=== PATIENT | male | born 1955 | race Caucasian/White ===

== ENCOUNTER 2017-04-06 22:31 | Emergency (ER) | payer OTHER ==
--- NOTE | 2017-04-06 23:57 | ED NURSING NOTES ---
Clinical Report - Nurses [facility] [address] [place] [address] 04/06/2017 22:32 Patient: JAYMIE BARTLETT TRIAGE Triage time 22:35. Acuity: LEVEL 3. Chief Complaint: LIGHT HEADED. --22:39 Kenia Worthington R.N. 22:35 04/06/17. BP: 135/94. HR: 192. RR: 20. O2 saturation: 96%. Temp: 97.8 F. Pain level now: 0/10. --22:39 Kenia Worthington R.N. 22:35. --22:57 Melvin Asencio Weight: 81.6 kg. Height/Length: 68 inches. BMI: 27.4. --22:36 Kenia Worthington R.N. Medications Lipitor Oral 10 mg, daily. --22:36 Kenia Worthington R.N. Allergies No Known Drug Allergy. --22:36 Kenia Worthington R.N. History Arrived by private vehicle. Historian: patient. Accompanied by family. This started just prior to arrival. 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 PAST MEDICAL HX: Immunizations: up-to-date. SOCIAL HX: Never smoker. Alcohol use; consumes beer occasionally. No drug use. No infectious disease exposure. SELF HARM ASSESSMENT: A self harm assessment was performed. The patient answered "no" to the question "Have you recently felt down, depressed, or hopeless?", "Have you noticed less interest or pleasure in doing things?", "Do you have thoughts of harming or killing yourself?", "Are you here because you tried to hurt yourself?", "Have you ever tried to hurt yourself before today?", "Have you recently had thoughts about harming or killing others?" and "Do you have any dangerous items in your possession?". FALL RISK ASSESSMENT: Fall risk assessment completed. No fall risk identified. NUTRITIONAL RISK ASSESSMENT: The nutritional risk assessment revealed no deficiencies. FUNCTIONAL ASSESSMENT: Functional assessment: no impairments noted. LEARNING NEEDS ASSESSMENT: The learning needs assessment revealed no barriers. ABUSE ASSESSMENT: Abuse assessment: The patient was asked "Do you feel safe in your home?". SKIN INTEGRITY ASSESSMENT: Skin integrity risk assessment completed. No skin integrity risk identified. --22:39 Kenia Worthington R.N. ( pt arrived with RHR, pt is in SVT on monitor). --22:57 Melvin Asencio PROBLEMS: Changed Mental Status. Alcohol Intoxication. Hypercholesterolemia. --22:36 Kenia Worthington R.N. ADDITIONAL SURGERIES: no known surgeries. Interventions ID band on patient. To treatment room. --22:39 Kenia Worthington R.N. PHYSICAL ASSESSMENT To room via wheelchair. GENERAL / NEURO / PSYCH: Oriented X 4. Appears in no acute distress. Alert. Speech within normal limits. HEENT: No facial asymmetry noted. Pupils equal, round and reactive to light. RESPIRATORY: Breath sounds within normal limits. Respirations not labored. CVS: Normal sinus rhythm noted. Capillary refill less than 2 seconds. GI / : Abdomen soft and nontender. SKIN: Skin is warm and dry. --22:40 Kenia Worthington R.N. NURSING PROGRESS NOTES 22:40 04/06/2017 Site #1 started via IV in the left wrist with an 20g angiocath, with aseptic technique and good blood return; one attempt. Blood drawn: rainbow set. Labeled in the presence of the patient and sent to the lab. Saline lock flushed with saline. --22:40 Kenia Worthington R.N. Oxygen administered by nasal cannula at 2 liters. enterprise systems engineer, pulse oximeter and NIBP monitor placed on patient. Patient gowned. Call light placed in reach. Side rails up x 1. Bed placed in lowest position. Brakes of bed on. --22:40 Kenia Worthington R.N. ( adenosine 6mg given per md, pt now back to HR of 108 at this time). --22:46 Kenia Worthington R.N. ( repeat EKG complete). --22:46 Kenia Worthington R.N. Reassessment after medication administered. He is calm. Overall patient status is improved. --22:46 Kenia Worthington R.N. ( NS bolus started). --22:46 Kenia Worthington R.N. ( pt was placed on ZOLL monitor prior to administration). --22:47 Kenia Worthington R.N. 22:33 04/06/2017 Site #2 started via IV in the right antecubital space with an 18g angiocath; one attempt. Saline lock flushed with saline. --22:48 Melvin Asencio ( pt sitting up in bed laughing and joking at this time, pt in SR at this time). --22:53 Melvin Asencio DISPOSITION / DISCHARGE 00:07 04/07/2017 Site #2 removed upon discharge. Catheter intact. Pressure dressing applied. --00:07 Melvin Asencio 00:04/07/2017 Site #1 removed upon discharge. Catheter intact. Pressure dressing applied. --00:07 Melvin Asencio Departure time: 00:08. Condition at departure: improved. No learning barriers present. Discharge instructions provided and reviewed with the patient. Patient verbalized understanding. Written instructions provided in Pashto. No warning instructions, medication instructions, treatment instructions, referrals given to the patient or diet instructions. No activity restrictions, note given, follow up contact number given or stop smoking instructions. The patient was discharged by the physician. He was discharged home and accompanied by spouse. He left the Emergency Department ambulatory and via private vehicle. Spouse driving. FALL RISK ASSESSMENT: Fall risk assessment completed. No fall risk identified. --00:08 Melvin Asencio 00:07 04/07/17. BP: 123/88. HR: 91. RR: 16. O2 saturation: 99%. Temp: deferred. Pain level now: 0/10. --00:08 Melvin Asencio Locked/Released at 04/07/2017 0:08 by Melvin Asencio
--- NOTE | 2017-04-06 23:57 | ED ORDER SUMMARY ---
..... Patient: JAYMIE BARTLETT OrderSheet [facility] VisitID: [id number] [address] [place] [address] 61y, M Registration Date/Time: 04/06/2017 ORDER SHEET Weight: 81.6 kg Allergies: No Known Drug Allergy GENERAL ORDERS: Leadlighter (Continuous) (22:50 04/06/2017 Aria GOODEN) (22:51 TBowen R.N.) Chest 1V Urgent (22:51 04/06/2017 Aria GOODEN) (Ack 22:52 AMcQuoid ER Tech1) (23:01 AMcQuoid ER Tech1) Cardiac Panel Stat (22:51 04/06/2017 Aria GOODEN) (22:51 TBowen R.N.) Oxygen (2 L/min) (NC) (22:51 04/06/2017 Aria GOODEN) (22:51 TBowen R.N.) Pulse oximeter (22:51 04/06/2017 Aria GOODEN) (22:51 TBowen R.N.) EKG - ER Stat (22:51 04/06/2017 Aria GOODEN) (22:51 TBowen R.N.) MEDICATION ORDERS: IV FLUIDS: IV Saline Lock (22:51 04/06/2017 Aria GOODEN) (22:51 TBowen R.N.) ORDER SHEET NOTES: [Electronically signed by Alina Otto R.N. (00:08 04/07/2017)] [Electronically signed by Trevon Parrish MD (21:57 04/09/2017)] [Electronically locked/signed by Alina Otto R.N. (00:08 04/07/2017)]
--- NOTE | 2017-04-06 23:57 | ED CLINICAL REPORT ---
Clinical Report - Physicians/Mid Levels [facility] [address] [place] [place] [address] 04/06/2017 22:32 Patient: JAYMIE BARTLETT Time Seen: 22:39 Apr 06 2017. Arrived- By private vehicle. Historian- patient. CPT: ER phys charges level 4 plus (#116544). EKG interpretation (#[id number]) (times 2 exams.). HISTORY OF PRESENT ILLNESS Chief Complaint: PALPITATIONS. DIZZINESS. Modifying factors. Not worsened by anything. Not relieved by anything. This started today Working out in the sun shoveling when this came on. and is still present. Onset during exertion. It is described as a fast heart beat. He complains of dizziness. No chest pain or discomfort, difficulty breathing, sweating episodes or fainting episodes. No tingling or muscle spasms. He has had dizziness. 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 Similar symptoms previously: (about every 2 years but has not seen anyone for it.). ( Did get an ETT due to reported palpitations and it was normal.). Recent medical care: Not recently seen/assessed. REVIEW OF SYSTEMS No fever, chills, cough, orthopnea or calf pain. No sore throat, nausea, abdominal pain, black stools or difficulty with urination. No skin rash, vomiting, diarrhea or bloody stools. All systems otherwise negative, except as recorded above. PAST HISTORY Changed Mental Status. Alcohol Intoxication. Hypercholesterolemia. Additional Surgeries: no known surgeries. Medications: Lipitor Oral 10 mg, daily. Allergies: No Known Drug Allergy. SOCIAL HISTORY Never smoker. Occasional alcohol use. No drug use. ADDITIONAL NOTES The nursing notes have been reviewed. PHYSICAL EXAM Vital Signs: 04/06/2017 22:35 BP: 135/94. HR: 192. RR: 20. O2 saturation: 96%. Temp: 97.8 F. Pain level now: 0/10. Appearance: Alert. No acute distress. Eyes: Pupils equal, round and reactive to light. Eyes normal inspection. ENT: Ears normal. Nose normal. Dry mucous membranes present. Pharynx normal. Neck: Normal inspection. Neck supple. CVS: Tachycardia. Heart sounds normal. Pulses normal. Respiratory: No respiratory distress. Breath sounds normal. Chest nontender. Abdomen: Soft and nontender. Back: Normal external inspection. Skin: Skin warm. Normal skin color. No rash. Extremities: Extremities exhibit normal ROM. No lower extremity edema. Neuro: Oriented X 3. No motor deficit. No sensory deficit. LABS, X-RAYS, AND EKG EKG: Rate: 190. Tachycardia. Normal QRS complex. Non-specific ST segment / T wave abnormalities. Prior EKG unavailable. The study has been interpreted contemporaneously. The study has been independently viewed by me. The EKG appears to be a good tracing. EKG #2: Normal sinus rhythm. Rate: 109. Tachycardia. Left atrial enlargement. Non-specific ST segment / T wave abnormalities. Moderate T wave inversion in lead III and V1. Prior EKG unavailable. The study has been interpreted contemporaneously. The study has been independently viewed by me. The EKG appears to be a good tracing. Chest X-ray: Normal Chest X-Ray. Laboratory Tests: CBC w Diff: (SEAMUS: 04/06/2017 22:40) ( [facility] [place]06[place] 23:00) Final results Test Result Flag Units (Reference) WHITE BLOOD COUNT 15.3 H K/uL (4.5-11.5) RED BLOOD COUNT 5.27 M/uL (4.50-5.90) HEMOGLOBIN 16.9 gm/dL (13.5-17.5) HEMATOCRIT 50.0 % (41.0-53.0) MEAN CELL VOLUME 95 fL (80-100) MEAN CORPUSCULAR HGB 32 pg (26-34) MEAN CORPUSCULAR HGB CONC 34 g/dL (31-37) RED CELL DISTRIBUTION WIDTH 12.2 % (11.6-14.8) PLATELET COUNT 278 K/uL (150-400) LYMPH % 33.4 % (25-40) MONO % 2.9 L % (3-14) GRANULOCYTE % 63.7 CHEM 13 PANEL: (SEAMUS: 04/06/2017 22:40) ( IngRcvd 04/06/2017 23:31) Final results Test Result Flag Units (Reference) GLUCOSE 116 H mg/dL (70-110) BUN 21 H mg/dL (7-18) CREATININE 1.3 mg/dL (0.6-1.3) Estimated GFR 59.65 mL/min Estimated GFR- >60 mL/min Note: Persistent reduction over 3 months in eGFR<60 mL/min/1.73 m2 defines CKD. Patients with eGFR values>=60 mL/min/1.73 m2 may also have CKD if evidence ofpersistent proteinuria. Additional information may be foundat www.kidney.org. SODIUM 142 mmol/L (136-145) POTASSIUM 4.1 mmol/L (3.5-5.1) CHLORIDE 106 mmol/L (98-107) CARBON DIOXIDE 26 mmol/L (21-32) CALCIUM 9.2 mg/dL (8.5-10.1) TOTAL PROTEIN 7.9 g/dL (6.4-8.2) ALBUMIN 4.2 g/dL (3.3-5.0) BILIRUBIN, TOTAL 0.4 mg/dL (0.0-1.0) ALKALINE PHOSPHATASE 63 U/L (46-116) AST (SGOT) 33 U/L (15-37) ALT (SGPT) 47 U/L (12-78) CPK 266 H U/L (24-260) MAGNESIUM 2.2 mg/dL (1.8-2.4) CK-MB 5.2 H ng/mL (0.5-3.2) %CKMB 2.0 % (0.0-4.0) TROPONIN I 0.07 ng/mL (0.00-1.5) TROPONIN REFERENCE RANGE:<0.1 NEGATIVE0.1-1.5 INDETERMINANT>1.5 POSITIVE . PROGRESS AND PROCEDURES Course of Care: Adensine 6mg IV and patient converted to NSR. Patient/family counseled. Disposition: Discharged. Condition: stable and improved. CLINICAL IMPRESSION Paroxysmal supraventricular tachycardia (recurrent). Dehydration. INSTRUCTIONS No strenuous activity for one days until better. Drink plenty of fluids. (Would recommend an echocardiogram as the EKG suggested left atrial enlargement.). Warnings: Further evaluation is necessary. GENERAL WARNINGS: Return or contact your physician immediately if your condition worsens or changes unexpectedly, if not improving as expected, or if other problems arise. Your Current Medications: CONTINUE TAKING THE FOLLOWING MEDICATIONS: Lipitor Oral : 10 mg daily. Follow-up: Follow up with your doctor in one week. Call for an appointment. Understanding of the discharge instructions verbalized by patient. Discharge instructions reviewed with and understanding was verbalized by spouse. (Electronically signed by Trevon Parrish MD 04/09/2017 21:57)
--- NOTE | 2017-04-06 23:57 | ED NURSING NOTES ---
Clinical Report - Nurses [facility] [address] [place] [address] 04/06/2017 22:32 Patient: JAYMIE BARTLETT TRIAGE Triage time 22:35. Acuity: LEVEL 3. Chief Complaint: LIGHT HEADED. --22:39 Kenia Worthington R.N. 22:35 04/06/17. BP: 135/94. HR: 192. RR: 20. O2 saturation: 96%. Temp: 97.8 F. Pain level now: 0/10. --22:39 Kenia Worthington R.N. 22:35. --22:57 Melvin Asencio Weight: 81.6 kg. Height/Length: 68 inches. BMI: 27.4. --22:36 Kenia Worthington R.N. Medications Lipitor Oral 10 mg, daily. --22:36 Kenia Worthington R.N. Allergies No Known Drug Allergy. --22:36 Kenia Worthington R.N. History Arrived by private vehicle. Historian: patient. Accompanied by family. This started just prior to arrival. 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 PAST MEDICAL HX: Immunizations: up-to-date. SOCIAL HX: Never smoker. Alcohol use; consumes beer occasionally. No drug use. No infectious disease exposure. SELF HARM ASSESSMENT: A self harm assessment was performed. The patient answered "no" to the question "Have you recently felt down, depressed, or hopeless?", "Have you noticed less interest or pleasure in doing things?", "Do you have thoughts of harming or killing yourself?", "Are you here because you tried to hurt yourself?", "Have you ever tried to hurt yourself before today?", "Have you recently had thoughts about harming or killing others?" and "Do you have any dangerous items in your possession?". FALL RISK ASSESSMENT: Fall risk assessment completed. No fall risk identified. NUTRITIONAL RISK ASSESSMENT: The nutritional risk assessment revealed no deficiencies. FUNCTIONAL ASSESSMENT: Functional assessment: no impairments noted. LEARNING NEEDS ASSESSMENT: The learning needs assessment revealed no barriers. ABUSE ASSESSMENT: Abuse assessment: The patient was asked "Do you feel safe in your home?". SKIN INTEGRITY ASSESSMENT: Skin integrity risk assessment completed. No skin integrity risk identified. --22:39 Kenia Worthington R.N. ( pt arrived with RHR, pt is in SVT on monitor). --22:57 Melvin Asencio PROBLEMS: Changed Mental Status. Alcohol Intoxication. Hypercholesterolemia. --22:36 Kenia Worthington R.N. ADDITIONAL SURGERIES: no known surgeries. Interventions ID band on patient. To treatment room. --22:39 Kenia Worthington R.N. PHYSICAL ASSESSMENT To room via wheelchair. GENERAL / NEURO / PSYCH: Oriented X 4. Appears in no acute distress. Alert. Speech within normal limits. HEENT: No facial asymmetry noted. Pupils equal, round and reactive to light. RESPIRATORY: Breath sounds within normal limits. Respirations not labored. CVS: Normal sinus rhythm noted. Capillary refill less than 2 seconds. GI / : Abdomen soft and nontender. SKIN: Skin is warm and dry. --22:40 Kenia Worthington R.N. NURSING PROGRESS NOTES 22:40 04/06/2017 Site #1 started via IV in the left wrist with an 20g angiocath, with aseptic technique and good blood return; one attempt. Blood drawn: rainbow set. Labeled in the presence of the patient and sent to the lab. Saline lock flushed with saline. --22:40 Kenia Worthington R.N. Oxygen administered by nasal cannula at 2 liters. lunchroom monitor, pulse oximeter and NIBP monitor placed on patient. Patient gowned. Call light placed in reach. Side rails up x 1. Bed placed in lowest position. Brakes of bed on. --22:40 Kenia Worthington R.N. ( adenosine 6mg given per md, pt now back to HR of 108 at this time). --22:46 Kenia Worthington R.N. ( repeat EKG complete). --22:46 Kenia Worthington R.N. Reassessment after medication administered. He is calm. Overall patient status is improved. --22:46 Kenia Worthington R.N. ( NS bolus started). --22:46 Kenia Worthington R.N. ( pt was placed on ZOLL monitor prior to administration). --22:47 Kenia Worthington R.N. 22:33 04/06/2017 Site #2 started via IV in the right antecubital space with an 18g angiocath; one attempt. Saline lock flushed with saline. --22:48 Melvin Asencio ( pt sitting up in bed laughing and joking at this time, pt in SR at this time). --22:53 Melvin Asencio DISPOSITION / DISCHARGE 00:07 04/07/2017 Site #2 removed upon discharge. Catheter intact. Pressure dressing applied. --00:07 Melvin Asencio 00:04/07/2017 Site #1 removed upon discharge. Catheter intact. Pressure dressing applied. --00:07 Melvin Asencio Departure time: 00:08. Condition at departure: improved. No learning barriers present. Discharge instructions provided and reviewed with the patient. Patient verbalized understanding. Written instructions provided in Chinese. No warning instructions, medication instructions, treatment instructions, referrals given to the patient or diet instructions. No activity restrictions, note given, follow up contact number given or stop smoking instructions. The patient was discharged by the physician. He was discharged home and accompanied by spouse. He left the Emergency Department ambulatory and via private vehicle. Spouse driving. FALL RISK ASSESSMENT: Fall risk assessment completed. No fall risk identified. --00:08 Melvin Asencio 00:07 04/07/17. BP: 123/88. HR: 91. RR: 16. O2 saturation: 99%. Temp: deferred. Pain level now: 0/10. --00:08 Melvin Asencio Locked/Released at 04/07/2017 0:08 by Melvin Asencio
--- NOTE | 2017-04-06 23:57 | ED ORDER SUMMARY ---
..... Patient: JAYMIE BARTLETT OrderSheet [facility] VisitID: [id number] [address] [place] [address] 61y, M Registration Date/Time: 04/06/2017 ORDER SHEET Weight: 81.6 kg Allergies: No Known Drug Allergy GENERAL ORDERS: [employer] Insights (Continuous) (22:50 04/06/2017 Aria GOODEN) (22:51 TBowen R.N.) Chest 1V Urgent (22:51 04/06/2017 Aria GOODEN) (Ack 22:52 AMcQuoid ER Tech1) (23:01 AMcQuoid ER Tech1) Cardiac Panel Stat (22:51 04/06/2017 Aria GOODEN) (22:51 TBowen R.N.) Oxygen (2 L/min) (NC) (22:51 04/06/2017 Aria GOODEN) (22:51 TBowen R.N.) Pulse oximeter (22:51 04/06/2017 Aria GOODEN) (22:51 TBowen R.N.) EKG - ER Stat (22:51 04/06/2017 Aria GOODEN) (22:51 TBowen R.N.) MEDICATION ORDERS: IV FLUIDS: IV Saline Lock (22:51 04/06/2017 Aria GOODEN) (22:51 TBowen R.N.) ORDER SHEET NOTES: [Electronically signed by Alina Otto R.N. (00:08 04/07/2017)] [Electronically signed by Trevon Parrish MD (21:57 04/09/2017)] [Electronically locked/signed by Alina Otto R.N. (00:08 04/07/2017)]
--- NOTE | 2017-04-06 23:57 | ED CLINICAL REPORT ---
Clinical Report - Physicians/Mid Levels [facility] [address] [place] [address] 04/06/2017 22:32 Patient: JAYMIE BARTLETT Time Seen: 22:39 Apr 06 2017. Arrived- By private vehicle. Historian- patient. CPT: ER phys charges level 4 plus (#[id number]). EKG interpretation (#[id number]) (times 2 exams.). HISTORY OF PRESENT ILLNESS Chief Complaint: PALPITATIONS. DIZZINESS. Modifying factors. Not worsened by anything. Not relieved by anything. This started today Working out in the sun shoveling when this came on. and is still present. Onset during exertion. It is described as a fast heart beat. He complains of dizziness. No chest pain or discomfort, difficulty breathing, sweating episodes or fainting episodes. No tingling or muscle spasms. He has had dizziness. 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 Similar symptoms previously: (about every 2 years but has not seen anyone for it.). ( Did get an ETT due to reported palpitations and it was normal.). Recent medical care: Not recently seen/assessed. REVIEW OF SYSTEMS No fever, chills, cough, orthopnea or calf pain. No sore throat, nausea, abdominal pain, black stools or difficulty with urination. No skin rash, vomiting, diarrhea or bloody stools. All systems otherwise negative, except as recorded above. PAST HISTORY Changed Mental Status. Alcohol Intoxication. Hypercholesterolemia. Additional Surgeries: no known surgeries. Medications: Lipitor Oral 10 mg, daily. Allergies: No Known Drug Allergy. SOCIAL HISTORY Never smoker. Occasional alcohol use. No drug use. ADDITIONAL NOTES The nursing notes have been reviewed. PHYSICAL EXAM Vital Signs: 04/06/2017 22:35 BP: 135/94. HR: 192. RR: 20. O2 saturation: 96%. Temp: 97.8 F. Pain level now: 0/10. Appearance: Alert. No acute distress. Eyes: Pupils equal, round and reactive to light. Eyes normal inspection. ENT: Ears normal. Nose normal. Dry mucous membranes present. Pharynx normal. Neck: Normal inspection. Neck supple. CVS: Tachycardia. Heart sounds normal. Pulses normal. Respiratory: No respiratory distress. Breath sounds normal. Chest nontender. Abdomen: Soft and nontender. Back: Normal external inspection. Skin: Skin warm. Normal skin color. No rash. Extremities: Extremities exhibit normal ROM. No lower extremity edema. Neuro: Oriented X 3. No motor deficit. No sensory deficit. LABS, X-RAYS, AND EKG EKG: Rate: 190. Tachycardia. Normal QRS complex. Non-specific ST segment / T wave abnormalities. Prior EKG unavailable. The study has been interpreted contemporaneously. The study has been independently viewed by me. The EKG appears to be a good tracing. EKG #2: Normal sinus rhythm. Rate: 109. Tachycardia. Left atrial enlargement. Non-specific ST segment / T wave abnormalities. Moderate T wave inversion in lead III and V1. Prior EKG unavailable. The study has been interpreted contemporaneously. The study has been independently viewed by me. The EKG appears to be a good tracing. Chest X-ray: Normal Chest X-Ray. Laboratory Tests: CBC w Diff: (SEAMUS: 04/06/2017 22:40) ( [facility] [place]:00[place] Final results Test Result Flag Units (Reference) WHITE BLOOD COUNT 15.3 H K/uL (4.5-11.5) RED BLOOD COUNT 5.27 M/uL (4.50-5.90) HEMOGLOBIN 16.9 gm/dL (13.5-17.5) HEMATOCRIT 50.0 % (41.0-53.0) MEAN CELL VOLUME 95 fL (80-100) MEAN CORPUSCULAR HGB 32 pg (26-34) MEAN CORPUSCULAR HGB CONC 34 g/dL (31-37) RED CELL DISTRIBUTION WIDTH 12.2 % (11.6-14.8) PLATELET COUNT 278 K/uL (150-400) LYMPH % 33.4 % (25-40) MONO % 2.9 L % (3-14) GRANULOCYTE % 63.7 CHEM 13 PANEL: (SEAMUS: 04/06/2017 22:40) ( IlgRcvd 04/06/2017 23:31) Final results Test Result Flag Units (Reference) GLUCOSE 116 H mg/dL (70-110) BUN 21 H mg/dL (7-18) CREATININE 1.3 mg/dL (0.6-1.3) Estimated GFR 59.65 mL/min Estimated GFR- >60 mL/min Note: Persistent reduction over 3 months in eGFR<60 mL/min/1.73 m2 defines CKD. Patients with eGFR values>=60 mL/min/1.73 m2 may also have CKD if evidence ofpersistent proteinuria. Additional information may be foundat www.kidney.org. SODIUM 142 mmol/L (136-145) POTASSIUM 4.1 mmol/L (3.5-5.1) CHLORIDE 106 mmol/L (98-107) CARBON DIOXIDE 26 mmol/L (21-32) CALCIUM 9.2 mg/dL (8.5-10.1) TOTAL PROTEIN 7.9 g/dL (6.4-8.2) ALBUMIN 4.2 g/dL (3.3-5.0) BILIRUBIN, TOTAL 0.4 mg/dL (0.0-1.0) ALKALINE PHOSPHATASE 63 U/L (46-116) AST (SGOT) 33 U/L (15-37) ALT (SGPT) 47 U/L (12-78) CPK 266 H U/L (24-260) MAGNESIUM 2.2 mg/dL (1.8-2.4) CK-MB 5.2 H ng/mL (0.5-3.2) %CKMB 2.0 % (0.0-4.0) TROPONIN I 0.07 ng/mL (0.00-1.5) TROPONIN REFERENCE RANGE:<0.1 NEGATIVE0.1-1.5 INDETERMINANT>1.5 POSITIVE . PROGRESS AND PROCEDURES Course of Care: Adensine 6mg IV and patient converted to NSR. Patient/family counseled. Disposition: Discharged. Condition: stable and improved. CLINICAL IMPRESSION Paroxysmal supraventricular tachycardia (recurrent). Dehydration. INSTRUCTIONS No strenuous activity for one days until better. Drink plenty of fluids. (Would recommend an echocardiogram as the EKG suggested left atrial enlargement.). Warnings: Further evaluation is necessary. GENERAL WARNINGS: Return or contact your physician immediately if your condition worsens or changes unexpectedly, if not improving as expected, or if other problems arise. Your Current Medications: CONTINUE TAKING THE FOLLOWING MEDICATIONS: Lipitor Oral : 10 mg daily. Follow-up: Follow up with your doctor in one week. Call for an appointment. Understanding of the discharge instructions verbalized by patient. Discharge instructions reviewed with and understanding was verbalized by spouse. (Electronically signed by Trevon Parrish MD 04/09/2017 21:57)
--- NOTE | 2017-04-07 05:23 | DIAGNOSTIC IMAGING REPORT ---
PROCEDURE: XR CHEST 1 VIEW INDICATION: Supraventricular tachycardia. TECHNIQUE: Portable AP view (2300 hours). COMPARISON: None. FINDINGS: Allowing for overlying wires and external densities, lung are clear. Heart and mediastinum are normal. Thorax is normal. IMPRESSION: 1. Negative chest.
--- NOTE | 2017-04-09 21:57 | ED MAR SUMMARY ---
..... Medication Administration Record [facility] [address] [place], [place] [id number] Patient: JAYMIE BARTLETT Visit ID: [id number] 61y, M Weight: 81.6 kg Height/Length: 68 in BMI: 27.4 ALLERGIES: No Known Drug Allergy
--- NOTE | 2017-04-09 21:57 | ED DISCHARGE INSTRUCTIONS ---
Patient: JAYMIE BARTLETT General Instructions [facility] VisitID: [id number] [address] [place] [address] 61y, M Registration Date/Time: 04/06/2017 Paroxysmal supraventricular tachycardia (recurrent). Dehydration. INSTRUCTIONS No strenuous activity for one days until better. Drink plenty of fluids. (Would recommend an echocardiogram as the EKG suggested left atrial enlargement.). Warnings: Further evaluation is necessary. GENERAL WARNINGS: Return or contact your physician immediately if your condition worsens or changes unexpectedly, if not improving as expected, or if other problems arise. Your Current Medications: CONTINUE TAKING THE FOLLOWING MEDICATIONS: Lipitor Oral : 10 mg daily. Follow-up: Follow up with your doctor in one week. Call for an appointment. Understanding of the discharge instructions verbalized by patient. Discharge instructions reviewed with and understanding was verbalized by spouse. ADDITIONAL INFORMATION Tachycardia:P.A.T. (P.S.V.T.) P.A.T. stands for Paroxysmal Atrial Tachycardia (also called "P.S.V.T." or "Paroxysmal Supraventricular Tachycardia"). This means "sudden onset of fast heart beating." This may feel like your heart is racing or pounding. Because of the suddenness of onset, it is often scary but is usually not a dangerous condition. Episodes may last seconds, minutes or hours. This can occur in otherwise healthy persons who have used excessive amounts of stimulants such as tobacco or caffeine (coffee, tea, cola or medicines containing caffeine). Also certain ovdi-pec-pydzgmu cold & sinus remedies, as well as diet pills and some herbal supplements can over-stimulate the heart. Obviously, cocaine and amphetamine are the most powerful heart stimulants and must be avoided. Overactive thyroid and some types of heart valve disorders can also cause P.A.T. If your doctor suspects this, tests may be done to find out if this is the cause in your case. Home Care: 1) Rest today and resume your normal activities as soon as you are feeling back to normal. Sometimes a prolonged episode of P.A.T. can leave you feeling tired and weak for a while. 2) To prevent a recurrence, avoid ALL the stimulants mentioned above. If you have trouble eliminating coffee, switch to decaf. Smokers should make every effort to stop or at least switch to a filtered, low-nicotine type of cigarette while you look for a stop-smoking program. 3) If another episode of P.A.T. occurs, lie down and try to remain calm. These spells usually stop by themselves within a few minutes. Follow Up with your doctor within the week or as instructed by our staff. Get Prompt Medical Attention if any of the following occur: -- Chest, shoulder, arm, neck or back pain -- Shortness of breath -- Weakness -- Fainting or light-headedness -- Fast or pounding heartbeat that lasts over 20 minutes You have been given the following additional information: Pat (P.A.T.) No strenuous activity for one days until better. (Electronically signed by Trevon Parrish MD 04/09/2017 21:57)
--- NOTE | 2017-04-09 21:57 | ED DISCHARGE INSTRUCTIONS ---
Patient: JAYMIE BARTLETT General Instructions [facility] VisitID: [id number] [address] [place] [address] 61y, M Registration Date/Time: 04/06/2017 Paroxysmal supraventricular tachycardia (recurrent). Dehydration. INSTRUCTIONS No strenuous activity for one days until better. Drink plenty of fluids. (Would recommend an echocardiogram as the EKG suggested left atrial enlargement.). Warnings: Further evaluation is necessary. GENERAL WARNINGS: Return or contact your physician immediately if your condition worsens or changes unexpectedly, if not improving as expected, or if other problems arise. Your Current Medications: CONTINUE TAKING THE FOLLOWING MEDICATIONS: Lipitor Oral : 10 mg daily. Follow-up: Follow up with your doctor in one week. Call for an appointment. Understanding of the discharge instructions verbalized by patient. Discharge instructions reviewed with and understanding was verbalized by spouse. ADDITIONAL INFORMATION Tachycardia:P.A.T. (P.S.V.T.) P.A.T. stands for Paroxysmal Atrial Tachycardia (also called "P.S.V.T." or "Paroxysmal Supraventricular Tachycardia"). This means "sudden onset of fast heart beating." This may feel like your heart is racing or pounding. Because of the suddenness of onset, it is often scary but is usually not a dangerous condition. Episodes may last seconds, minutes or hours. This can occur in otherwise healthy persons who have used excessive amounts of stimulants such as tobacco or caffeine (coffee, tea, cola or medicines containing caffeine). Also certain dkhr-dih-sjtcqle cold & sinus remedies, as well as diet pills and some herbal supplements can over-stimulate the heart. Obviously, cocaine and amphetamine are the most powerful heart stimulants and must be avoided. Overactive thyroid and some types of heart valve disorders can also cause P.A.T. If your doctor suspects this, tests may be done to find out if this is the cause in your case. Home Care: 1) Rest today and resume your normal activities as soon as you are feeling back to normal. Sometimes a prolonged episode of P.A.T. can leave you feeling tired and weak for a while. 2) To prevent a recurrence, avoid ALL the stimulants mentioned above. If you have trouble eliminating coffee, switch to decaf. Smokers should make every effort to stop or at least switch to a filtered, low-nicotine type of cigarette while you look for a stop-smoking program. 3) If another episode of P.A.T. occurs, lie down and try to remain calm. These spells usually stop by themselves within a few minutes. Follow Up with your doctor within the week or as instructed by our staff. Get Prompt Medical Attention if any of the following occur: -- Chest, shoulder, arm, neck or back pain -- Shortness of breath -- Weakness -- Fainting or light-headedness -- Fast or pounding heartbeat that lasts over 20 minutes You have been given the following additional information: Pat (P.A.T.) No strenuous activity for one days until better. (Electronically signed by Trevon Parrish MD 04/09/2017 21:57)
--- NOTE | 2017-04-09 21:57 | ED MED RECONCILIATION SUMMARY ---
Patient: JAYMIE BARTLETT Medication Reconciliation Report [facility] VisitID: [id number] [address] [place] [address] 61y, M Registration Date/Time: 04/06/2017 Weight: 81.6 kg Height/Length: 68 in. BMI: 27.4 ALLERGIES: No Known Drug Allergy The patient's Home Medications are listed below: CONTINUE TAKING THE FOLLOWING MEDICATIONS: Lipitor Oral 10 mg, daily The source(s) of the original Home Medication information: Not obtained. The following Medications were given to the patient in the Emergency Department: None. The following Medications were prescribed to the patient: None.
--- NOTE | 2017-04-09 21:57 | ED MED RECONCILIATION SUMMARY ---
Patient: JAYMIE BARTLETT Medication Reconciliation Report [facility] VisitID: [id number] [address] [place] [place] [address] 61y, M Registration Date/Time: 04/06/2017 Weight: 81.6 kg Height/Length: 68 in. BMI: 27.4 ALLERGIES: No Known Drug Allergy The patient's Home Medications are listed below: CONTINUE TAKING THE FOLLOWING MEDICATIONS: Lipitor Oral 10 mg, daily The source(s) of the original Home Medication information: Not obtained. The following Medications were given to the patient in the Emergency Department: None. The following Medications were prescribed to the patient: None.
--- NOTE | 2017-04-09 21:57 | ED MAR SUMMARY ---
..... Medication Administration Record [facility] [address] [place], [place] [id number] Patient: JAYMIE BARTLETT Visit ID: [id number] 61y, M Weight: 81.6 kg Height/Length: 68 in BMI: 27.4 ALLERGIES: No Known Drug Allergy
== END 2017-04-07 | disposition home or self-care (01) ==
LOC: ED SRH 22:31
DX: I47.1 Supraventricular tachycardia (principal); E86.0 Dehydration; E78.00 Pure hypercholesterolemia, unspecified; Z79.899 Other long term (current) drug therapy
CPT/HCPCS: 90100; 90616; 90617; 92610; 92720; 95059